=== PATIENT | female | born 1965 | race Caucasian/White ===

== ENCOUNTER 2016-06-30 15:02 | Emergency (ER) | payer MEDICARE, OTHER ==
[2016-06-30 16:34] LABS: BASOPHIL 0.3 % (0-2); EOSINOPHIL 1.5 % (0-5); HCT 49.6 % (37.0-47.0); HGB 16.8 g/dl (12.5-16.0); LYMPHOCYTE 25.2 % (15-48); MCH 34.9 pg (25.0-31.0); MCHC 33.9 g/dL (32.0-36.0); MCV 103.1 fL (78.0-100.0); MONOCYTE 9.5 % (0-12); MPV 9.6 fL (6.0-9.5); NEUTROPHIL 63.5 % (41-80); PLT 333 K/uL (150-400); RBC 4.81 M/uL (4.20-5.40); RDW 17.9 % (11.5-14.0)
[2016-06-30 16:46] LABS: ALBUMIN 3.3 g/dL (3.5-5.0); BILIRUBIN - TOTAL 0.3 mg/dL (0.1-1.0); CREATININE 0.9 mg/dL (0.5-1.0); GLOBULIN (CALCULATION) 3.2 g/dL (2.2-4.2); POTASSIUM 3.1 mmol/L (3.5-5.1); TOTAL PROTEIN 6.5 g/dL (6.4-8.3)
== END 2016-06-30 17:24 | disposition home or self-care (01) ==
LOC: FER 15:02
PROVIDERS: Emergency Medicine
DX: K80.20 Calculus of gallbladder without cholecystitis without obstruction (principal); F17.210 Nicotine dependence, cigarettes, uncomplicated
CPT/HCPCS: 36415; 80053; 82150; 83690; 85025; 99284

== ENCOUNTER → 2016-07-10 | Day surgery (SDC) | payer MEDICARE, OTHER ==
[2016-07-10 09:29] LABS: HGB 16.1 g/dl (12.5-16.0); MCH 34.8 pg (25.0-31.0); MCHC 33.5 g/dL (32.0-36.0); MCV 103.7 fL (78.0-100.0); MPV 9.3 fL (6.0-9.5); RBC 4.63 M/uL (4.20-5.40); RDW 17.8 % (11.5-14.0); WBC 14.6 K/uL (4.0-10.5)
[2016-07-10 10:11] LABS: ALBUMIN 3.4 g/dL (3.5-5.0); ALKALINE PHOSHATASE 139 U/L (53-141); ALT 9 U/L (2-31); AST 23 U/L (0-31); BILIRUBIN - TOTAL 0.4 mg/dL (0.1-1.0); BUN <3.0 mg/dL (6-25); CHLORIDE 92 mmol/L (98-107); CREATININE 0.9 mg/dL (0.5-1.0); GLOBULIN (CALCULATION) 2.7 g/dL (2.2-4.2); GLUCOSE 81 mg/dL (70-105); POTASSIUM 2.7 mmol/L (3.5-5.1); TOTAL PROTEIN 6.1 g/dL (6.4-8.3)
== END | disposition home or self-care (01) ==
LOC: FAS 08:33
PROVIDERS: Surgery
DX: K80.11 Calculus of gallbladder with chronic cholecystitis with obstruction (principal); K75.81 Nonalcoholic steatohepatitis (NASH); F32.9 Major depressive disorder, single episode, unspecified; F41.9 Anxiety disorder, unspecified; K21.9 Gastro-esophageal reflux disease without esophagitis; K29.70 Gastritis, unspecified, without bleeding; M19.90 Unspecified osteoarthritis, unspecified site; J45.909 Unspecified asthma, uncomplicated; J44.9 Chronic obstructive pulmonary disease, unspecified; F17.210 Nicotine dependence, cigarettes, uncomplicated; Z98.890 Other specified postprocedural states; Z88.0 Allergy status to penicillin; Z88.2 Allergy status to sulfonamides; Z88.1 Allergy status to other antibiotic agents; Z79.1 Long term (current) use of non-steroidal anti-inflammatories (NSAID); Z79.899 Other long term (current) drug therapy
CPT/HCPCS: 36415; 71010; 80053; 84703; 88304; 88307; 88313; 93005; J0690; J1100; J1170; J2405; J2704; J2710; J3010; Q9962

== ENCOUNTER → 2020-06-19 | Day surgery (SDC) | payer MEDICARE, OTHER ==
[~2020-06-19] MED LIST: ACETAMINOPHEN325 MG PO; ACETAMINOPHEN500 M1 PO; ASPIRIN EC81 MG PO; ATIVAN0.5 MG PO; CALCIUM MAGNES1 EACH PO; COLESEVELAM HC625 MG PO; DEXILANT60 MG PO; FLEXERIL10 MG PO; FLEXERIL5 MG PO; GABAPENTIN300 MG PO; GINKGO BILOBA60 M1 PO; HCTZ25 MG PO; HYDROCHLOROTHIA25 M1 PO; LASIX20 MG PO; LEVAQUIN500 MG PO; LINZESS145 MCG PO; LUVOX100 MG PO; MEDROL4 M1 PO; NEURONTIN300 MG PO; NORCO 5-325 TA1 EACH PO; ONDANSETRON ODT8 MG SL; PEPCID AC20 MG PO; PERCOCET 5-3251 EACH PO; PERIACTIN PO; PROVENTIL HFA6.7 GM INH; RESTORIL15 MG PO; RISPERDAL3 MG PO; SEROQUEL200 MG PO; TRAZODONE 50MG50 MG PO; VENTOLIN HFA18 GM INH; VISTARIL25 MG PO; VITAMIN B-121000 MC1 PO; VITAMIN B-1250 MCG PO; VITAMIN D1000 UNIT PO; ZANTAC150 MG PO; ZOFRAN4 M1 PO; ZYRTEC10 M3 PO
[2020-06-19 09:28] LABS: HCG (URINE) SCREEN NEGATIVE (NEGATIVE)
== END | disposition home or self-care (01) ==
LOC: FAS 08:40
PROVIDERS: Anesthesiology
DX: K57.30 Diverticulosis of large intestine without perforation or abscess without bleeding (principal); K44.9 Diaphragmatic hernia without obstruction or gangrene; K21.9 Gastro-esophageal reflux disease without esophagitis; K80.10 Calculus of gallbladder with chronic cholecystitis without obstruction; K75.81 Nonalcoholic steatohepatitis (NASH); J45.909 Unspecified asthma, uncomplicated; J44.9 Chronic obstructive pulmonary disease, unspecified; F17.210 Nicotine dependence, cigarettes, uncomplicated; E78.89 Other lipoprotein metabolism disorders; Z88.0 Allergy status to penicillin; Z88.1 Allergy status to other antibiotic agents; Z88.2 Allergy status to sulfonamides; Z87.09 Personal history of other diseases of the respiratory system; Z98.890 Other specified postprocedural states; Z20.822 Contact with and (suspected) exposure to COVID-19; Z98.51 Tubal ligation status
CPT/HCPCS: 84703; J2250; J2704; J7120

== ENCOUNTER 2020-08-11 17:09 | Inpatient (IN) | payer MEDICARE, OTHER ==
[~2020-08-11] VITALS: Ht 175.3 cm; Wt 88.6 kg
[2020-08-11 18:24] LABS: BASOPHIL 0.3 % (0-2); EOSINOPHIL 0.2 % (0-5); HCT 34.4 % (37.0-47.0); HGB 11.5 g/dl (12.5-16.0); LYMPHOCYTE 19.1 % (15-48); MCH 33.7 pg (25.0-31.0); MCHC 33.4 g/dL (32.0-36.0); MCV 100.9 fL (78.0-100.0); MONOCYTE 1.6 % (0-12); MPV 9.3 fL (6.0-9.5); NEUTROPHIL 77.6 % (41-80); NRBC 1.5; PLT 646 K/uL (150-400); RBC 3.41 M/uL (4.20-5.40); RDW 20.2 % (11.5-14.0); WBC 9.9 K/uL (4.0-10.5)
[2020-08-11 18:46] LABS: ALBUMIN 0.7 g/dL (3.4-5.0); ALKALINE PHOSHATASE 426 U/L (46-116); ALT 14 U/L (14-59); AST 30 U/L (15-37); BILIRUBIN - TOTAL 0.5 mg/dL (0.2-1.0); BUN 29 mg/dL (7-18); BUN/CREAT RATIO (CALC) 16.1 RATIO; C-REACTIVE PROTEIN >18.00 mg/dL (<=0.90); CHLORIDE 103 mmol/L (98-107); CO2 (BICARBONATE) 17 mmol/L (21-32); GLOBULIN (CALCULATION) 3.7 g/dL; GLUCOSE 71 mg/dL (74-106); LIPASE 17 U/L (73-393); POTASSIUM 3.9 mmol/L (3.5-5.1); TOTAL PROTEIN 4.4 g/dL (6.4-8.2)
[2020-08-11 18:56] LABS: LACTIC ACID 4.7 mmol/L (0.4-1.9)
[2020-08-11 19:27] LABS: CORONAVIRUS 2019 SARS-COV-2 NEGATIVE (NEGATIVE); INFLUENZA A NAA NEGATIVE (NEGATIVE)
[2020-08-12 00:08] LABS: MAGNESIUM 2.2 mg/dL (1.8-2.4); PHOSPHORUS 5.9 mg/dL (2.6-4.7)
--- NOTE | 2020-08-12 02:54 | NUR ---
PT ARRIVED TO FLOOR 0000 AFTER SURGERY, WITH SURGERY MD, ANETHESIA, AND OR NURSE. PT INTUBATED WITH A-LINE AND CENTRAL LINE. RESP AT BEDSIDE
[2020-08-12 03:52] LABS: BILIRUBIN 1+ mg/dL (NEGATIVE); BLOOD NEGATIVE Ery/uL (NEGATIVE); CLARITY CLEAR (CLEAR); COLOR YELLOW (YELLOW); GLUCOSE (U) NORMAL (NORMAL); LEUKOCYTES NEGATIVE Leu/uL (NEGATIVE); NITRITE NEGATIVE (NEGATIVE); PROTEIN NEGATIVE (NEGATIVE); SPECIFIC GRAVITY 1.025 (1.001-1.030); pH 5.5 (5.0-9.0)
[2020-08-12 05:12] LABS: BASOPHIL 0.5 % (0-2); EOSINOPHIL 9.4 % (0-5); HCT 31.5 % (37.0-47.0); HGB 10.2 g/dl (12.5-16.0); LYMPHOCYTE 8.6 % (15-48); MCH 33.7 pg (25.0-31.0); MCHC 32.4 g/dL (32.0-36.0); MONOCYTE 4.4 % (0-12); MPV 9.6 fL (6.0-9.5); NEUTROPHIL 74.4 % (41-80); NRBC 1.5; PLT 622 K/uL (150-400); RBC 3.03 M/uL (4.20-5.40); RDW 19.9 % (11.5-14.0)
[2020-08-12 05:21] LABS: INR 1.72 (0.9-1.2); PROTHROMBIN TIME 19.2 SECONDS (11.4-13.6); PTT 41.3 SECONDS (22.2-34.7)
[2020-08-12 05:26] LABS: WBC 28.8 K/uL (4.0-10.5)
[2020-08-12 05:27] LABS: ALBUMIN 1.3 g/dL (3.4-5.0); BILIRUBIN - TOTAL 0.7 mg/dL (0.2-1.0); BUN/CREAT RATIO (CALC) 17.3 RATIO; CREATININE 1.5 mg/dL (0.51-0.95); GLOBULIN (CALCULATION) 2.5 g/dL; POTASSIUM 3.3 mmol/L (3.5-5.1); TOTAL PROTEIN 3.8 g/dL (6.4-8.2)
[2020-08-12 05:39] LABS: MAGNESIUM 1.7 mg/dL (1.8-2.4)
--- NOTE | 2020-08-12 11:59 | NUR ---
08/12/20 Ms. Alexander is currently on a ventilator. The H&P notes that patient lives with her daughter. Will monitor for discharge planning needs.
[2020-08-12 14:54] LABS: BUN/CREAT RATIO (CALC) 19.1 RATIO; CREATININE 1.36 mg/dL (0.51-0.95); MAGNESIUM 1.6 mg/dL (1.8-2.4); PHOSPHORUS 4.5 mg/dL (2.6-4.7); POTASSIUM 3.6 mmol/L (3.5-5.1)
[2020-08-12 20:35] LABS: BUN/CREAT RATIO (CALC) 18.1 RATIO; CREATININE 1.27 mg/dL (0.51-0.95); POTASSIUM 4.5 mmol/L (3.5-5.1)
--- NOTE | 2020-08-13 05:16 | NUR ---
08/13/20 0100- PT ABP DROPPING TO 86-90/47-50 W/ A MAP OF 60. PT CURRENTLY MAXED OUT ON LEVOPED AT 30MCG/MIN. B/P DISCUSSED WITH DINKEY BRAKEMAN FOR POC. 0200 PT STARTED ON EPINEPHRINE GTT AT 2MCG/MIN FOR A GOAL MAP OF 65. 0245 PT TITRATED UP TO MAX EPI GTT OF 10MCG/MIN. B/P REMAINS 83/44(55) 0300 VASOPRESSIN GTT STARTED AT THIS TIME AT OF RATE OF 0.2 UNITS/HR. WILL TITRATE FOR A GOAL MAP > 65.
[2020-08-13 06:07] LABS: BASOPHIL 0.4 % (0-2); EOSINOPHIL 0.1 % (0-5); HCT 25.3 % (37.0-47.0); HGB 8.6 g/dl (12.5-16.0); LYMPHOCYTE 6.9 % (15-48); MCH 34.3 pg (25.0-31.0); MCV 100.8 fL (78.0-100.0); MONOCYTE 2.5 % (0-12); MPV 9.9 fL (6.0-9.5); NEUTROPHIL 88.6 % (41-80); PLT 337 K/uL (150-400); RBC 2.51 M/uL (4.20-5.40); RDW 19.7 % (11.5-14.0)
[2020-08-13 06:19] LABS: INR 1.85 (0.9-1.2); PROTHROMBIN TIME 20.3 SECONDS (11.4-13.6); PTT 47.7 SECONDS (22.2-34.7)
[2020-08-13 06:28] LABS: ALBUMIN 1.1 g/dL (3.4-5.0); BILIRUBIN - TOTAL 0.5 mg/dL (0.2-1.0); BUN/CREAT RATIO (CALC) 17.9 RATIO; CREATININE 1.17 mg/dL (0.51-0.95); GLOBULIN (CALCULATION) 2.3 g/dL; PHOSPHORUS 2.7 mg/dL (2.6-4.7); POTASSIUM 3.4 mmol/L (3.5-5.1); TOTAL PROTEIN 3.4 g/dL (6.4-8.2)
[2020-08-13 06:31] LABS: MAGNESIUM 2.1 mg/dL (1.8-2.4)
[2020-08-13 06:55] LABS: WBC 36.5 K/uL (4.0-10.5)
[2020-08-13 07:01] LABS: BAND 27 % (0-10); LYMPHOCYTE(M) 8 % (15-48); METAMYELOCYTE 5; MONOCYTE(M) 3 % (0-12); MYELOCYTE 1; NEUTROPHILS(M) 56 % (41-80); TOTAL CELL COUNT 100
[2020-08-13 07:02] LABS: PLATELET ESTIMATE NORMAL; PLATELET MORPHOLOGY NORMAL
[2020-08-13 07:03] LABS: ANISOCYTOSIS MODERATE
[2020-08-13 07:04] LABS: PAPPENHEIMER BODIES PRESENT
[2020-08-13 07:10] LABS: POLYCHROMASIA MODERATE
[2020-08-13 07:13] LABS: NRBC 0.6
--- NOTE | 2020-08-13 11:06 | NUR ---
0800 PT DAUGHTER VICTOR HUGO CALLED FOR UPDATE ON CONDITION. NOTIFIED OF NEED FOR 2 ADDITIONAL PRESSORS AND TEMP. 0956- CALLED FOR CONSENT FOR BLOOD TRANSFUSION/CONSENT RECIEVED WITH AJIT Mcgrath RN.
[2020-08-14 05:32] LABS: BASOPHIL 0.3 % (0-2); EOSINOPHIL 0.1 % (0-5); HCT 33.4 % (37.0-47.0); HGB 10.8 g/dl (12.5-16.0); LYMPHOCYTE 6.5 % (15-48); MCH 31.1 pg (25.0-31.0); MCHC 32.3 g/dL (32.0-36.0); MCV 96.3 fL (78.0-100.0); MONOCYTE 3.3 % (0-12); NEUTROPHIL 88.5 % (41-80); NRBC 0.2; PLT 192 K/uL (150-400); RBC 3.47 M/uL (4.20-5.40); RDW 23.4 % (11.5-14.0); RETICULOCYTE COUNT 3.6 % (1.0-2.0)
[2020-08-14 05:42] LABS: WBC 33.2 K/uL (4.0-10.5)
[2020-08-14 05:50] LABS: INR 1.43 (0.9-1.2); PROTHROMBIN TIME 16.6 SECONDS (11.4-13.6); PTT 47.1 SECONDS (22.2-34.7)
[2020-08-14 06:36] LABS: ALBUMIN 0.9 g/dL (3.4-5.0); ALKALINE PHOSHATASE 127 U/L (46-116); ALT 9 U/L (14-59); AST 12 U/L (15-37); BILIRUBIN - TOTAL 1.2 mg/dL (0.2-1.0); BUN 17 mg/dL (7-18); BUN/CREAT RATIO (CALC) 17.9 RATIO; CHLORIDE 98 mmol/L (98-107); CO2 (BICARBONATE) 28 mmol/L (21-32); CREATININE 0.95 mg/dL (0.51-0.95); FOLIC ACID (SERUM) 4.2 ng/mL (8.6-58.9); GLOBULIN (CALCULATION) 2.4 g/dL; GLUCOSE 140 mg/dL (74-106); MAGNESIUM 1.9 mg/dL (1.8-2.4); PHOSPHORUS 1.4 mg/dL (2.6-4.7); TOTAL PROTEIN 3.3 g/dL (6.4-8.2)
[2020-08-14 06:37] LABS: C-REACTIVE PROTEIN > 18.00 mg/dL (<=0.90); CPK 37 U/L (26-192)
[2020-08-14 07:30] LABS: IRON 19 ug/dL (50-170); IRON % SATURATION 211.1 %SAT (20-50)
--- NOTE | 2020-08-15 02:16 | NUR ---
RT ASSESSED PATIENT DUE TO INCREASED LOW VT ALARMING. PATIENT AUTO TRIGGERING VENT. SEDATION TURNED OFF TODAY PER RN. PATIENT SWITCHED TO AC FROM SIMV PATIENT MORE COMPLIANT AND GETTING BETTER VT, LESS AUTO TRIGGERING. SENSTIVITY ADJUSTED DUE TO SIZE 6.5 ET TUBE. PATIENT CURRENT VENT SETTINGS AC VT700, R10, 40%, +5. FLOW SET AT 45 AND SENSITIVITY INCREASED TO 2.0. PATIENT HAS SCANT YELLOW THICK SECRETIONS, NO GAG WITH ORAL SUCTIONING, BUT DOES BLINK. PATIENT CLEAR WITH DIMINISHED LOWER LOBE BREATH SOUNDS. PATIENT PER XRAYS WORSENING SUMIT ATLECTASIS. FRANCESCO LOPEZ NOTIFIED OF VENT CHANGES. PATIENT HAS MAINTAINED GOOD SATURATION AT 100% PER MONITOR. AM ABG ORDERED. 2CC AIR ADDED TO CUFF RT TO CONTINUE TO MONITOR PATIENT
[2020-08-15 05:59] LABS: BASOPHIL 0.3 % (0-2); EOSINOPHIL 0.4 % (0-5); HCT 32.8 % (37.0-47.0); HGB 10.8 g/dl (12.5-16.0); LYMPHOCYTE 8.7 % (15-48); MCH 31.8 pg (25.0-31.0); MCHC 32.9 g/dL (32.0-36.0); MCV 96.5 fL (78.0-100.0); MONOCYTE 4.4 % (0-12); MPV 10.9 fL (6.0-9.5); NEUTROPHIL 85.1 % (41-80); NRBC 0; PLT 101 K/uL (150-400); RDW 22.9 % (11.5-14.0); WBC 27.9 K/uL (4.0-10.5)
--- NOTE | 2020-08-15 06:10 | NUR ---
AM ABG OBTAINED AT 0554 7.317/49.7/53.5/25.4/86.1% DRAWN FROM LT RADIAL DESIRE. RAN AND COMPARED ON BOTH ABG MACHINES DUE TO PATIENT MAINTAINING GOOD MONITOR SAT. PATIENT MONITOR SAT 94%, ELI ROSS NOTED O2 TRENDING DOWN THIS AM. PATIENT SLIGHTLY MORE ACIDOTIC THIS AM, INCREASED RR 12, INCREASED FIO2 TO 50% OTHERWISE PATIENT HAS BEEN VENTILATING MUCH BETTER THIS SHIFT WHEN SWITCHED TO ASSIST CONTROL, RN STATED PATIENT ALARMING DECREASED. PATIENT DOES NOT HAVE TEMP AT THIS TIME.
--- NOTE | 2020-08-15 06:23 | NUR ---
SPOKE TO FRANCESCO LOPEZ ABOUT VENT CHANGES, PATIENT STATUS
[2020-08-15 06:34] LABS: ALBUMIN 1.5 g/dL (3.4-5.0); BILIRUBIN - TOTAL 1.2 mg/dL (0.2-1.0); BUN/CREAT RATIO (CALC) 18.9 RATIO; CREATININE 0.74 mg/dL (0.51-0.95); GLOBULIN (CALCULATION) 2.3 g/dL; MAGNESIUM 1.8 mg/dL (1.8-2.4); PHOSPHORUS 2.3 mg/dL (2.6-4.7); POTASSIUM 3.2 mmol/L (3.5-5.1); TOTAL PROTEIN 3.8 g/dL (6.4-8.2)
[2020-08-15 06:54] LABS: BAND 14 % (0-10); LYMPHOCYTE(M) 8 % (15-48); MONOCYTE(M) 3 % (0-12); NEUTROPHILS(M) 71 % (41-80)
[2020-08-15 06:57] LABS: MYELOCYTE 4
[2020-08-15 07:20] LABS: ANISOCYTOSIS SLIGHT; PLATELET ESTIMATE NORMAL; PLATELET MORPHOLOGY NORMAL
[2020-08-15 07:48] LABS: TOTAL CELL COUNT 100
--- NOTE | 2020-08-15 12:18 | NUR ---
0925 TOOK PATIENT FOR A HEAD CT,JAMAAL AND CURT NEWBERRY HELPED WITH TRANSFER OF THE PATIENT.SUDHIR JOYA AND ANKIT RNS HELPED,PT HAD NO SIGNS OF DISTRESS AND NO CHANGES IN VITALS
[2020-08-16 06:15] LABS: BASOPHIL 0.2 % (0-2); EOSINOPHIL 0.4 % (0-5); HCT 30.5 % (37.0-47.0); HGB 10.1 g/dl (12.5-16.0); LYMPHOCYTE 8.3 % (15-48); MCH 31.9 pg (25.0-31.0); MCHC 33.1 g/dL (32.0-36.0); MCV 96.2 fL (78.0-100.0); MONOCYTE 6.9 % (0-12); MPV 11.2 fL (6.0-9.5); NEUTROPHIL 81.4 % (41-80); NRBC 0; PLT 89 K/uL (150-400); RBC 3.17 M/uL (4.20-5.40); RDW 22.2 % (11.5-14.0)
[2020-08-16 06:36] LABS: INR 1.41 (0.9-1.2); PROTHROMBIN TIME 16.4 SECONDS (11.4-13.6); PTT 41.5 SECONDS (22.2-34.7)
[2020-08-16 06:40] LABS: MAGNESIUM 1.8 mg/dL (1.8-2.4); PHOSPHORUS 3.1 mg/dL (2.6-4.7); VANCOMYCIN, TROUGH 16.6 ug/mL (10-20)
[2020-08-16 07:14] LABS: LYMPHOCYTE(M) 13 % (15-48); METAMYELOCYTE 1; MONOCYTE(M) 5 % (0-12); NEUTROPHILS(M) 81 % (41-80); TOTAL CELL COUNT 100
[2020-08-16 07:15] LABS: PLATELET ESTIMATE NORMAL; PLATELET MORPHOLOGY NORMAL
[2020-08-16 10:41] LABS: ALBUMIN 1.2 g/dL (3.4-5.0); BILIRUBIN - TOTAL 0.7 mg/dL (0.2-1.0); BUN/CREAT RATIO (CALC) 21.7 RATIO; CREATININE 0.69 mg/dL (0.51-0.95); GLOBULIN (CALCULATION) 1.8 g/dL; POTASSIUM 3.2 mmol/L (3.5-5.1)
--- NOTE | 2020-08-16 13:23 | NUR ---
PATIENT TRANSPORTED VIA EMS TO [facility]. REPORT GIVEN TO Tyron IN ICU. TRANSPORTED WITH LEVOPHED, FENTANYL AND D10. ON VENT
--- NOTE | 2020-08-17 11:00 | NUR ---
08/15/20 1200PM CONSULT FOR IV/MIDLINE. PT EVALUATED FOR MIDLINE. DAUGHTER AT BEDSIDE. PROCEDURE EXPLAINED TO DAUGHTER VOICED UNDERSTANDING. PT PREPPRED AND DRAPED IN STERILE FASHION. PT'S RIGHT UPPER ARM BASILIC VEIN WAS VISUALIZED USING THE SITE RITE 6. VEINS ARE SMALL. A 21 GA NEEDLE WAS USED. BLOOD RETURN NOTED, ATTEMPTED TO THREAD THE GUIDE WIRE, RESISTANCE MET, PROCEDURE STOPPED AND NEEDLE AND WIRE REMOVED. ATTEMPLED AGAIN STILL RESISTANCE MET. PROCEDURE ABORTED. USING THE ULTRA MACHINE A 20GA ANGIO WAS INSERTING THE A/C SPACE OF PT'S RIGHT ARM BLOOD RETURN NOTED. FLUSHED EASILY. IV ANGIO SECURED. PT'S NURSE IN ROOM AND SHE ALSO FLUSHED PT'S IV SITE AT THIS TIME.
== END 2020-08-16 13:00 | disposition other institution (70) | DRG 853 ==
LOC: FER 17:09 → FMS 20:17 → FICU 20:17
PROVIDERS: Internal Medicine; Nurse Practitioner; Surgery; ADMIT Allergy & Immunology Allergy
PROC: 0WQF0ZZ Repair Abdominal Wall, Open Approach (ICD-10-PCS; 2020-08-11)
PROC: 0DB80ZZ Excision of Small Intestine, Open Approach (ICD-10-PCS; principal; 2020-08-11 22:30)
PROC: 5A1955Z Respiratory Ventilation, Greater than 96 Consecutive Hours (ICD-10-PCS; 2020-08-12)
PROC: 3E033XZ Introduction of Vasopressor into Peripheral Vein, Percutaneous Approach (ICD-10-PCS; 2020-08-12)
PROC: 3E0336Z Introduction of Nutritional Substance into Peripheral Vein, Percutaneous Approach (ICD-10-PCS; 2020-08-12)
PROC: 30233N1 Transfusion of Nonautologous Red Blood Cells into Peripheral Vein, Percutaneous Approach (ICD-10-PCS; 2020-08-13)
PROC: 30233N1 Transfusion of Nonautologous Red Blood Cells into Peripheral Vein, Percutaneous Approach (ICD-10-PCS; 2020-08-14)
DX: A41.51 Sepsis due to Escherichia coli [E. coli] (principal); R65.21 Severe sepsis with septic shock; K63.1 Perforation of intestine (nontraumatic); J96.01 Acute respiratory failure with hypoxia; E43 Unspecified severe protein-calorie malnutrition; G92 Toxic encephalopathy; E87.2 Acidosis; N17.9 Acute kidney failure, unspecified; K66.8 Other specified disorders of peritoneum; Z20.822 Contact with and (suspected) exposure to COVID-19; K21.9 Gastro-esophageal reflux disease without esophagitis; E53.8 Deficiency of other specified B group vitamins; Z96.651 Presence of right artificial knee joint; E87.70 Fluid overload, unspecified; E88.09 Other disorders of plasma-protein metabolism, not elsewhere classified; D50.9 Iron deficiency anemia, unspecified; J43.9 Emphysema, unspecified; G62.9 Polyneuropathy, unspecified; F17.210 Nicotine dependence, cigarettes, uncomplicated; M51.36 Other intervertebral disc degeneration, lumbar region; E55.9 Vitamin D deficiency, unspecified; E03.9 Hypothyroidism, unspecified; D72.821 Monocytosis (symptomatic); Z96.611 Presence of right artificial shoulder joint; Z68.23 Body mass index [BMI] 23.0-23.9, adult; Z88.0 Allergy status to penicillin; Z88.2 Allergy status to sulfonamides; Z88.8 Allergy status to other drugs, medicaments and biological substances; Z87.01 Personal history of pneumonia (recurrent); Z90.49 Acquired absence of other specified parts of digestive tract; Z98.890 Other specified postprocedural states
CPT/HCPCS: 36415; 36430; 36600; 70450; 71045; 71275; 73070; 74018; 80048; 80053; 80170; 80202; 81003; 82550; 82607; 82746; 82803; 82962; 83540; 83550; 83605; 83690; 83735; 83880; 84100; 84134; 84145; 84478; 85025; 85610; 85730; 86140; 86850; 86900; 86901; 86922; 87040; 87070; 87075; 87076; 87077; 87088; 87186; 87205; 93005; 94002; 96365; 96375; C1751; C9113; J0171; J0610; J1580; J1650; J1956; J2185; J2250; J2916; J2930; J3010; J3370; J3430; J3475; J3480; J3490; J7030; J7040; J7050; J7070; J7120; P9016; P9046; P9047; Q9967; U0002